=== PATIENT | male | born 1980 | race Caucasian/White ===

== ENCOUNTER 2020-01-25 06:43 | Day surgery (SDC) | payer BC, OTHER ==
--- OUTSIDE RECORDS SUMMARY | 2020-01-25 06:47 | XMS REPORT | Clinical Summary ---
:1980 Author Organization [facility] Address [address] [place] [address] Care Team Providers Name Role Phone Asked, No Pcp Primary Care Provider Unavailable Allergies Not on File Medications Not on file Active Problems Not on file Encounters Date Type Specialty Care Team Description 07/20/2019 Transcribe Orders Access Andrei Rodriguez MD Speci al screening (Primary Dx) after 01/24/2019 Social History Tobacco Use Types Packs/Day Years Used Date Never Assessed Sex Assigned at Date Recorded Not on file Job Start Date Occupation Industry Not on file Not on file Not on file Travel History Travel Start Travel End No recent travel history available. Last Filed Vital Signs Not on file Plan of Treatment Health Maintenance Due Date Last Done Comments INFLUENZA VACCINE 03/29/2020 Procedures Procedure Name Priority Date/Time Associated Diagnosis Comme nts CT CARDIAC CALCIUM Routine 07/25/2019 1:24 PM Special screeni ng Results for this SCORE [employer] procedure are i n the results section. after 01/24/[address] cardiac calcium score (07/25/2019 1:24 PM [employer]) Specimen Narrative Performed At EXAMINATION: CT CARDIAC CALCIUM SCORE [facility] CLINICAL HISTORY: Z13.9 Encounter for screening unsp ecified, SPECIAL SCREENING COMPARISON: None. TECHNIQUE: CT imaging was performed with iterative rec onstruction techniques and/or automated exposure con trol to reduce radiation dose. FINDINGS: Agatston total coronary artery calcium s core: 0 Age Corrected Percent ile: 0th Left main (LM): 0 Left anterior descending (LAD): 0 Left circumflex (LCX): 0 Right coronary artery (RCA): 0 Posterior descending artery (PDA): 0 Noncoronary findings: Visualized portions of the lungs , pleura, and pericardium are unremarkable. Calcified right hilar ly mph nodes consistent with a remote history of granulomatous dise ase. There is a subpleural nodule in the left lower lobe on series 2, image 18 which measures up to 5 mm in size. Right p erihilar calcified granuloma. Agatston calcium score (total) extent of atherosclerosis 0-normal 7-00-cgukxpc extent of atherosclerosis 10-100-mild extent of atherosclerosis [id number] extent of atheroscleros is Greater than 400-severe extent of athero sclerosis IMPRESSION: Total coronary artery calcium score of 0 . Subpleural 5 mm noncalcified nodule in the left lower lobe. In the absence of prior imaging, complete chest CT for comple te evaluation is recommended. [id number] Procedure Note Interface, Radiology Results Incoming - 07/25/2019 1:37 PM [employer] EXAMINATION: CT CARDIAC CALCIUM SCORE CLINICAL HISTORY: Z13.9 Encounter for sc reening unspecified, SPECIAL SCREENING COMPARISON: None. TECHNIQUE: CT imaging was performed with iterative reconstruction techniques and/or automated exposure control to reduce radiation dose. FINDINGS: Agatston total coronary artery calcium s core: 0 Age Corrected Percentile: 0th Left main (LM): 0 Left anterior descending (LAD): 0 Left circumflex (LCX): 0 Right coronary artery (RCA): 0 Posterior descending artery (PDA): 0 Noncoronary findings: Visualized portion s of the lungs, pleura, and pericardium are unremarkable. Calcified right hilar lymph nodes consistent with a remote history of granulomatous disease. There is a subpleural nodule in the left lower lobe on series 2, image 18 which measures up to 5 mm in size. Right perihilar calcified granuloma. Agatston calcium score (total) extent of atherosclerosis 0-normal 8-91-zlsbhpi extent of atherosclerosis 10-100-mild extent of atherosclerosis [id number] extent of atheroscleros is Greater than 400-severe extent of athero sclerosis IMPRESSION: Total coronary artery calcium score of 0 . Subpleural 5 mm noncalcified nodule in t he left lower lobe. In the absence of prior imaging, complete chest CT for complete evaluation is recommended. 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
[2020-01-25] MEDS ORDERED: BUPIVACA 0.5%/EPI 0.0005%/PF 30 ML VIAL ONE (07:00)
[2020-01-25] MEDS ORDERED: Ringers Lactate 1,000 ML IV ONE (07:05)
[2020-01-25] MEDS ORDERED: CEFAZOLIN/SWI 1gm 2 GM/20 ML SYR ONE (07:06)
[2020-01-25] MEDS ORDERED: MIDAZOLAM HCL 2 MG/2 ML INJ ONE (07:25)
[2020-01-25] MEDS ORDERED: ROCURONIUM 50 MG/5 ML VIAL IV ONE (07:25)
[2020-01-25] MEDS ORDERED: propofoL 200 MG/20 ML VIAL IV ONE (07:25)
[2020-01-25] MEDS ORDERED: FENTANYL CITR 100 MCG/2 ML ONE (07:25)
[2020-01-25] MEDS ORDERED: LIDOCAINE 1% MPF 5 ML VIAL ONE (07:25)
[2020-01-25] MEDS ORDERED: ONDANSETRON 4 MG/2 ML VIAL ONE ×2 (07:57→09:01)
[2020-01-25] MEDS ORDERED: GLYCOPYRROLATE 0.2 MG/ML SYR ONE (07:57)
[2020-01-25] MEDS ORDERED: dexAMETHasone 10 MG/ML VIAL ONE (07:57)
[2020-01-25] MEDS ORDERED: KETOROLAC 30 MG/ML INJ ONE (07:57)
[2020-01-25] MEDS ORDERED: NEOSTIGMINE 1 MG/ML -5 ML ONE (07:57)
[2020-01-25] MEDS ORDERED: VECURONIUM 10 MG/VIAL IV ONE (08:03)
--- NOTE | 2020-01-25 08:23 | P.OP ---
Preoperative diagnosis: Umbilical Hernia Postoperative diagnosis: Umbilical Hernia Primary procedure: Open Repair of Tender Umbilical Hernia with Mesh Anesthesia: GETA + Local Estimated blood loss: <5cc Specimen: pre-peritoneal fat, Findings: incarcerated hernia with adipose tissue only Complications: None Implants: 4.3 cm round Bard Ventralite Transferred to: Recovery Room Condition: Good
[2020-01-25] MEDS ORDERED: HYDROMORPHONE HCL 1 MG/ML INJ ONE (09:01)
[2020-01-25] MEDS ORDERED: PROMETHAZINE INJ 25 MG/ML AMP ONE (09:01)
--- NOTE | 2020-01-25 09:01 | OP ---
Date of Procedure: 01/25/2020 Surgeon: Blanco Gong MD, Preoperative Diagnosis: Umbilical hernia. Postoperative Diagnosis: Umbilical hernia. Procedure Performed: Open repair of tender umbilical hernia with mesh. Anesthesia: General endotracheal plus local with 0.5% Marcaine with epinephrine. Estimated Blood Loss: Less than 5 cc. Specimen: Preperitoneal fat. Findings: 1.Incarcerated hernia with adipose tissue only. 2.No intestinal contents were found within. Complications: None. Implants: 4.3 cm Bard Ventralight mesh placed in the preperitoneal position. Disposition: Transferred to recovery room in good condition. Procedure In Detail: After informed was obtained, patient was brought to the operating room, prepped and draped in the usual sterile fashion after adequate anesthesia achieved. A curvilinear area was anesthetized between the umbilicus. A 15-blade was used to dissect down through subcutaneous tissues . Electrocautery was used to dissect down to the peritoneal space and fascia overlying. At this poi nt, the hernia was appreciated. It was approximately 1 cm in size. It was circumferentially dissect ed free from surrounding tissue and the hernia sac was entered sharply without evidence of complicati on. Immediately preperitoneal fat and omentum were encountered. This was dissected free from the he rnia sac and the hernia sac was dissected free completely circumferentially. At this point, the omen jim and preperitoneal fat was reduced into the operative field and ligated using electrocautery with good hemostasis. A finger sweep was then performed in the preperitoneal space to ensure a flat lina ng spot and a 4.3 cm Bard Ventralight mesh was sized appropriately and secured to the preperitoneal s pace using 4 interrupted 0 PDS sutures in a parachute type fashion. Once it was placed in the preper itoneal space, it was digitized to ensure it was flat and good apposition to the abdominal wall and a ll sutures were then secured at this point. The area was irrigated copiously and dried out at this p oint and then the fascia overlying was closed over the mesh in the preperitoneal position. The area was irrigated once again and the deep dermal layer was closed using interrupted 3-0 Vicryl with good approximation of tissues and skin was closed with a 4-0 Monocryl fashion. Dermabond placed over top. Patient tolerated the procedure without evidence of complication, transferred to PACU in good condi tion. All counts were correct at the end of the case. TK/MODL Voice ID: [id number] Report ID: [id number]
[2020-01-25] MEDS ORDERED: HYDROCODONE/APAP 5/325 MG TAB ONE (09:46)
[2020-01-25 09:58] VITALS: O2SAT 96
[2020-01-25 13:08] VITALS: BP 106/75; TEMP 97.3
== END 2020-01-25 11:15 | disposition home or self-care (01) ==
LOC: OR 06:43
PROVIDERS: ATTEND Surgery
PROC: 0WUF0JZ Supplement Abdominal Wall with Synthetic Substitute, Open Approach (ICD-10-PCS; principal; 2020-01-25 07:30)
DX: K42.0 Umbilical hernia with obstruction, without gangrene (principal); Z11.59 Encounter for screening for other viral diseases; I10 Essential (primary) hypertension; J45.909 Unspecified asthma, uncomplicated; K21.9 Gastro-esophageal reflux disease without esophagitis; J44.9 Chronic obstructive pulmonary disease, unspecified; Z87.891 Personal history of nicotine dependence
CPT/HCPCS: 88302; 49587; J2704; J2550; J2250; J3010; J1100; J2710; J0690; J7120; J2405 ×2; J1170